=== PATIENT | female | born 1990 | race Caucasian/White ===

== ENCOUNTER 2024-10-04 09:25 | Outpatient (AMB) | payer OTHER, SELFPAY ==
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
[2024-10-04 09:38] VITALS: BP 104/68; PULSE 88; RESP 12; TEMP 36.4; O2SAT 99; BMI 31.4
== END 2024-10-04 10:18 | disposition home or self-care (01) ==
LOC: HO.HMCFM 09:26
PROVIDERS: PCP Physician Assistant Medical; Visit Provider Physician Assistant Medical
DX: Z91.09 Other allergy status, other than to drugs and biological substances (principal); J45.20 Mild intermittent asthma, uncomplicated; G43.909 Migraine, unspecified, not intractable, without status migrainosus; F41.9 Anxiety disorder, unspecified; F32.A Depression, unspecified

== ENCOUNTER → 2024-10-04 09:25 | Outpatient (BNVA) | payer OTHER, SELFPAY | PROVIDERS: Visit Provider Physician Assistant Medical | DX: F41.9 Anxiety disorder, unspecified (principal); F32.A Depression, unspecified; G43.909 Migraine, unspecified, not intractable, without status migrainosus; G89.29 Other chronic pain; E78.5 Hyperlipidemia, unspecified; F90.9 Attention-deficit hyperactivity disorder, unspecified type; J45.20 Mild intermittent asthma, uncomplicated; E66.9 Obesity, unspecified; Z68.31 Body mass index [BMI] 31.0-31.9, adult; Z91.09 Other allergy status, other than to drugs and biological substances | CPT/HCPCS: 96127 ==

== ENCOUNTER 2024-11-21 10:09 | Outpatient (REF) | payer OTHER, SELFPAY ==
--- OUTSIDE RECORDS SUMMARY | 2024-11-21 11:07 | XMS_ITS | Encounter Summary ---
Author Organization [facility] Address [address] [place] [id number] Phone Care Team Providers Care Freight Checker Name Role Phone Unavailable Primary Care Provider Unavailabl e Encounter Details Date Type Department Care Team (Late st Contact Info) Description 11/27/2017 Conversion Encounter [facility] [address] [address] Social History Tobacco Use Types Packs/Day Years Used Date Smoking Tobacco: Never Assessed Comments Unknown Sex and Gender Information Value Date Recorded Sex Assigned at Not on file Legal Sex Female 6:09 PM EDT Gender Identity Not on file Sexual Orientation Not on file documented as of this encounter Plan of Treatment Not on file documented as of this encounter Visit Diagnoses Not on filedocumented in this encounter
--- OUTSIDE RECORDS SUMMARY | 2024-11-21 11:07 | XMS_ITS | Clinical Summary ---
Author Organization [facility] Address [address] [place] [id number] Phone Care Team Providers Care It Architecture Consultant Name Role Phone Unavailable Primary Care Provider Unavailabl e Immunizations Immunization Administration Dates Next Due DTaP 08/23/1996, 3,02/19/1992,12/24,1991 Hep B, ped/adol 09/01/1993,09/06/1992,07/31/1992 Hib (PRP-T) 11/18/1992, 2,1991,10/22 Influenza 05/25/2007 MMR 08/23/1996,11/18/1992 Meningococcal Conj (Menactra) MCV4P 01/30/2007 OPV 08/23/1996, 2,1991,10/22 Td (adult) (Tenivac), 5 Lf t etanus toxoid, PF, adsorbed 06/21/2002 Tdap 01/30/2007 Varicella 02/06/2008,08/13/1997 Family History Relation Name Status Comments Father Alive healthy age: 47 Maternal Grandfather Alive COPD po st- polio syndrome, depression, hypertension, tumor on pituitary gland Maternal Grandmother Alive arthrit is Mother Alive healthy age: 45 Other Alive Siblings: healt hy Paternal Grandfather Alive Chava on's disease Paternal Grandmother Alive healthy Social History Tobacco Use Types Packs/Day Years Used Date Smoking Tobacco: Never Assessed Comments Unknown Sex and Gender Information Value Date Recorded Sex Assigned at Not on file Legal Sex Female 6:09 PM EDT Gender Identity Not on file Sexual Orientation Not on file Last Filed Vital Signs Vital Sign Reading Time Taken Comments Blood Pressure 116/78 03/05/2010 12:00 AM EDT Pulse - - Temperature - - Respiratory Rate - - Oxygen Saturation - - Inhaled Oxygen Concentration - - Weight 84.7 kg (186 lb 12.8 oz) 010 12:00 AM EDT Height 173.4 cm (5' 8.25 ) 03/05/2010 1 2:00 AM EDT Body Mass Index 28.2 03/05/2010 12:00 AM EDT Plan of Treatment Health Maintenance Due Date Last Done Comments DTaP,Tdap,and Td Vaccines (7 - Td or Tdap) 01/30/2017 01/30/2007, 06/21/2002, 08/23/1996, Additional history exists Influenza Vaccines (#1) 2024 05/25/2007 COVID-19 Vaccine ( season) 2024 HIB Vaccines Completed 11/18/1992, 02/08, 1991, Additional history exists Hepatitis B Vaccines Completed 09/01/1993, 09/06/1992, 07/31/1992 IPV Vaccines Completed 08/23/1996, 02/08, 1991, Additional history exists MMR Vaccines Completed 08/23/1996, 11/18/1992 Meningococcal Vaccine Aged Out 01/30/2007 No bg artie eligible based on patient's age to complete this topic Varicella Vaccines Completed 02/06/2008, 08/13/1997 HPV Vaccines Aged Out No longer eligi ble based on patient's age to complete this topic Hepatitis A Vaccines Aged Out No long er eligible based on patient's age to complete this topic Men B Vaccine Aged Out No longer elig ible based on patient's age to complete this topic Pneumococcal Vaccine Aged Out No long er eligible based on patient's age to complete this topic
[2024-11-21 15:02] LABS: Hematocrit 40.6 % (37.0-47.0); Hemoglobin 13.6 g/dl (12.0-16.0); Mean Corpuscular HGB Conc 33.5 g/dl (31.0-35.0); Mean Corpuscular Hemoglobin 29.6 pg (27.0-33.0); Mean Corpuscular Volume 88.5 fL (80.0-98.0); Mean Platelet Volume 8.8 fL (9.4-12.3); Platelet Count 236 X10*3/uL (160-400); Red Blood Count 4.59 X10*6/uL (4.20-5.50); Red Cell Distribution Width 12.4 % (11.0-16.0); White Blood Count 4.9 X10*3/uL (4.8-10.8)
[2024-11-21 15:47] LABS: Alanine Aminotransferase 13 U/L (0-31); Albumin Level 3.5 g/dL (3.5-5.0); Anion Gap 10 (12-20); Aspartate Amino Transferase 28 U/L (5-31); Bilirubin Total 0.3 mg/dL (0.0-1.0); Blood Urea Nitrogen 12 mg/dL (9-16); Calcium 8.7 mg/dL (8.4-10.2); Carbon Dioxide 24 mmol/L (22-29); Chloride 108 mmol/L (96-108); Cholesterol 227 mg/dL (<200); Estimated Glomerular Filt Rate > 60; Glucose Random 92 mg/dL (60-115); HDL Cholesterol 48 mg/dL (>40); LDL Cholesterol Calculated 140 mg/dL (<100); Potassium 4.1 mmol/L (3.3-5.1); Sodium 138 mmol/L (135-145); TSH reflex Free T4 1.07 uIU/mL (0.32-4.0); Total Protein 6.5 g/dL (6.5-8.0); Triglycerides 196 mg/dL (<150)
[2024-11-21 16:54] LABS: Alkaline Phosphatase 49 U/L (39-117)
== END 2024-11-21 10:10 | disposition home or self-care (01) ==
LOC: HO.WFDLDS 10:09
PROVIDERS: Visit Provider Physician Assistant Medical
DX: Z13.6 Encounter for screening for cardiovascular disorders (principal); E78.5 Hyperlipidemia, unspecified
CPT/HCPCS: 36415; 80053; 80061; 84443; 85027

== ENCOUNTER 2024-11-29 16:00 | Outpatient (AMB) | payer OTHER, SELFPAY ==
--- OUTSIDE RECORDS SUMMARY | 2024-11-29 16:03 | XMS_ITS | Clinical Summary ---
Author Organization [facility] Address [address] [place] [id number] Phone Care Team Providers Care Saw Operator Name Role Phone Unavailable Primary Care Provider [...]
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
[2024-11-29 16:15] VITALS: BP 114/62; PULSE 90; TEMP 36.5; O2SAT 98; BMI 30.7
== END 2024-11-29 16:58 | disposition home or self-care (01) ==
LOC: HO.HMCFM 16:01
PROVIDERS: PCP Physician Assistant Medical; Visit Provider Physician Assistant Medical
DX: J45.20 Mild intermittent asthma, uncomplicated (principal); G43.909 Migraine, unspecified, not intractable, without status migrainosus; F41.9 Anxiety disorder, unspecified; F32.A Depression, unspecified; Z00.00 Encounter for general adult medical examination without abnormal findings

== ENCOUNTER → 2024-11-29 16:00 | Outpatient (BNVA) | payer OTHER, SELFPAY | PROVIDERS: PCP Physician Assistant Medical; Visit Provider Physician Assistant Medical | DX: Z00.00 Encounter for general adult medical examination without abnormal findings (principal); F41.9 Anxiety disorder, unspecified; F32.A Depression, unspecified; J45.20 Mild intermittent asthma, uncomplicated; G43.909 Migraine, unspecified, not intractable, without status migrainosus; G89.29 Other chronic pain; F90.9 Attention-deficit hyperactivity disorder, unspecified type; E66.9 Obesity, unspecified; Z68.30 Body mass index [BMI] 30.0-30.9, adult | CPT/HCPCS: 96127; 96160 ==

== ENCOUNTER 2025-06-13 10:15 | Outpatient (AMB) | payer OTHER, SELFPAY ==
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
== END 2025-06-13 11:36 | disposition home or self-care (01) ==
LOC: HO.HMCFM 10:15
PROVIDERS: PCP Physician Assistant Medical; Visit Provider Physician Assistant Medical
DX: G43.909 Migraine, unspecified, not intractable, without status migrainosus (principal); F41.9 Anxiety disorder, unspecified; F32.A Depression, unspecified; M54.2 Cervicalgia; G89.29 Other chronic pain; E78.5 Hyperlipidemia, unspecified; E66.811 Obesity, class 1